=== PATIENT | female | born 1950 | race Caucasian/White ===

== ENCOUNTER → 2016-06-01 | Outpatient (CLI) | payer OTHER ==
[~2016-06-01] MED LIST: ALEVE220 MG PO; CRESTOR10 MG PO; PRILOSEC20 MG PO; TUMS PO; VITAMIN B12-FO1 EAC1 PO; VITAMIN D1000 UNI1 PO
== END ==
LOC: CAT 13:12
DX: K57.90 Diverticulosis of intestine, part unspecified, without perforation or abscess without bleeding (principal); K76.0 Fatty (change of) liver, not elsewhere classified; R10.2 Pelvic and perineal pain; R10.9 Unspecified abdominal pain

== ENCOUNTER → 2016-10-03 | Outpatient (CLI) | payer OTHER ==
[2016-10-03 08:38] LABS: URINE BILIRUBIN NEGATIVE (Negative); URINE BLOOD NEGATIVE (Negative); URINE COLOR YELLOW; URINE GLUCOSE-RANDOM* NEGATIVE (Negative); URINE KETONES NEGATIVE (Negative); URINE NITRITE NEGATIVE (Negative); URINE PROTEIN (DIPSTICK) TRACE (Negative); URINE SPECIFIC GRAVITY 1.025 (1.003-1.035)
[2016-10-03 08:39] LABS: ABSOLUTE NEUTROPHILS 2.7 thou/uL (1.4-8.2); BASOPHILS 1.1 % (0.0-2.0); EOSINOPHILS 5.8 % (0.0-3.0); HEMATOCRIT 46.4 % (37.0-47.0); HEMOGLOBIN 15.7 gm/dL (12.0-15.0); LYMPHOCYTES 36.8 % (24.0-44.0); MCH 30.5 pg (26.0-34.0); MCHC 33.9 g/dL (28.0-37.0); MCV 89.8 fL (80.0-100.0); MONOCYTES 11.5 % (1.0-8.0); PLATELET COUNT 312 thou/uL (150-400); POLYS 44.8 % (36.0-66.0); RBC 5.17 mil/uL (4.20-5.00); RDW 14.7 % (10.5-14.5); WBC 6.1 thou/uL (4.0-11.0)
[2016-10-03 08:40] LABS: MANUAL DIFF NO
[2016-10-03 08:55] LABS: ALBUMIN 3.9 g/dL (3.4-5.0); ALKALINE PHOSPHATASE 88 U/L (46-116); ANION GAP 6 mmol/L (7-16); BUN 16 mg/dL (7-18); CALCIUM 9.2 mg/dL (8.5-10.1); CHLORIDE 108 mmol/L (98-107); CHOLESTEROL 175 mg/dL (<200); CO2 28 mmol/L (21-32); CREATININE 0.9 mg/dL (0.6-1.0); GLUCOSE 110 mg/dL (74-106); HDL CHOLESTEROL 48 mg/dL (>40); LDL CHOLESTEROL 106 mg/dL (<100); POTASSIUM 4.1 mmol/L (3.5-5.1); SGOT 19 U/L (15-37); SGPT 24 U/L (30-65); SODIUM 142 mmol/L (136-145); TC:HDL 3.6 Ratio (Not establshd); TOTAL BILIRUBIN 1.4 mg/dL (<0.1-1.0); TOTAL PROTEIN 7.2 g/dL (6.4-8.2); TRIGLYCERIDE 105 mg/dL (<150); VLDL 21 mg/dL (<40)
== END ==
LOC: LABMALL 08:02
PROVIDERS: Internal Medicine
DX: Z00.00 Encounter for general adult medical examination without abnormal findings (principal)

== ENCOUNTER → 2016-10-22 | Outpatient (CLI) | payer OTHER | LOC: NUC 10:20 | DX: E28.39 Other primary ovarian failure (principal); Z78.0 Asymptomatic menopausal state ==

== ENCOUNTER → 2017-04-26 | Outpatient (CLI) | payer OTHER ==
[~2017-04-26] VITALS: Ht 160 cm; Wt 112.0 kg
[~2017-04-26] MED LIST changes: +PRILOSEC 20 MG20 MG PO; +VITAMINC500 PO; +ZYRTEC10 M5 PO
--- NOTE | ~2017-04-26 | S ---
[facility] [address] [place] [address] SURGICAL PATH RPT PROCEDURE Name: KIMBERLY HUTCHISON Room #: REG MIGUEL Hurst#: [id number] Admission: 04/26/17 Date of : 52 Discharge: Report #: [id number] Path Case #: [id number] PATHOLOGY REPORT DRAFT COLLECTION DATE: 04/26/2017 RECEIVED DATE: 04/26/2017 SPECIMEN(S) RECEIVED: Anthony of distal esophagus
--- NOTE | ~2017-04-26 | P ---
[facility] [place] [address] PROCEDURE REPORT Name: KIMBERLY HUTCHISON Room #: REG [facility] Aris#: [id number] Admission: 04/26/17 Attend Phys: Gallito Rojas Discharge: Date of : 52 Report #: [id number] THIS REPORT FOR: //name// CC: Aminata Luke DATE OF SERVICE: 04/26/2017 PROCEDURE PERFORMED: Upper endoscopy with biopsies. HISTORY OF PRESENT ILLNESS: The patient is a 66-year-old female with a history of Hdz's esophagus. Last upper endoscopy with biopsies was performed 3 years ago. She is here for routine followup. She takes Prilosec on a daily basis. She denies any symptoms. PROCEDURE: The risks and benefits of the procedure were explained to the patient, those risks including, but not limited to bleeding or perforation. She understood these risks and gave informed consent. Sedation was given using propofol per anesthesia. Next, using a standard [employer] upper endoscope, the scope was placed in the patient's mouth and advanced under direct vision through the esophagus, stomach and into the second portion of the duodenum. The upper and mid esophagus was normal in appearance. At the GE junction, a tiny possible tongue of Hdz's was noted. Biopsies were obtained. No evidence of esophagitis. Upon entering the stomach, a small hiatal hernia was noted. Overall, the gastric mucosa was normal. The pylorus was normal and patent. The duodenal bulb, first and second portion were all normal. The scope was then withdrawn and the procedure terminated. The patient tolerated the procedure well. IMPRESSION: 1. Possible short segment Hdz's. 2. Small hiatal hernia. 3. Otherwise, normal upper endoscopy. RECOMMENDATIONS: 1. Await biopsy results. 2. Continue PPI therapy. Thank you for allowing me to participate in her care. By: [id number] Gallito Luke MD /nt
== END | disposition home or self-care (01) ==
LOC: GI 07:39
DX: K44.9 Diaphragmatic hernia without obstruction or gangrene (principal)

== ENCOUNTER → 2018-03-28 | Outpatient (CLI) | payer OTHER ==
[~2018-03-28] VITALS: Ht 160 cm; Wt 112.5 kg
[~2018-03-28] MED LIST changes: +TYLENOL EXTRA500 MG PO
--- NOTE | ~2018-03-28 | P ---
[facility] [place] [address] PROCEDURE REPORT Name: KIMBERLY HUTCHISON Room #: REG [facility] Aris#: [id number] Admission: 03/28/18 Attend Phys: Gallito Rojas Discharge: Date of : 52 Report #: [id number] THIS REPORT FOR: //name// CC: Aminata Luke DATE OF SERVICE: 03/28/2018 PROCEDURE PERFORMED: Colonoscopy. HISTORY OF PRESENT ILLNESS: The patient is a 67-year-old female with a history of polyps 5 years ago who is here for routine followup. She denies any symptoms. No family history of colon cancer. DESCRIPTION OF PROCEDURE: The risks and benefits of the procedure were explained to the patient, those risks including but not limited to bleeding, perforation, the risk of sedation. She understood these risks and gave informed consent. Sedation was given using propofol per anesthesia. Next, a digital rectal exam was initially performed, which was normal. Next, using a standard Olympus colonoscope, the scope was placed in the patient's anus and advanced under direct vision to the cecum. The overall prep was excellent. The cecum and ileocecal valve were normal in appearance. The ascending and transverse colon were normal. Multiple diverticula were noted throughout the descending and sigmoid colon, no evidence of inflammation, otherwise normal. The rectal mucosa was normal. On retroflexion, no abnormalities were noted. The scope was then withdrawn and the procedure terminated. The patient tolerated the procedure well. IMPRESSION: 1. Left-sided diverticulosis. 2. Otherwise, normal colonoscopy. RECOMMENDATIONS: 1. High fiber diet. 2. Repeat colonoscopy in 10 years. Thank you for allowing me to participate in her care. <ELECTRONICALLY SIGNED> By: Gallito Luke MD 03/31/18 [id number] Gallito Luke MD /nt
== END | disposition home or self-care (01) ==
LOC: GI 08:01
DX: Z12.11 Encounter for screening for malignant neoplasm of colon (principal); K57.30 Diverticulosis of large intestine without perforation or abscess without bleeding; Z86.010 Personal history of colon polyps; E78.5 Hyperlipidemia, unspecified; K21.9 Gastro-esophageal reflux disease without esophagitis; G47.30 Sleep apnea, unspecified; Z98.890 Other specified postprocedural states; Z88.1 Allergy status to other antibiotic agents; Z88.2 Allergy status to sulfonamides; Z88.8 Allergy status to other drugs, medicaments and biological substances; Z91.09 Other allergy status, other than to drugs and biological substances; Z79.899 Other long term (current) drug therapy; Z90.89 Acquired absence of other organs; Z98.51 Tubal ligation status; Z90.10 Acquired absence of unspecified breast and nipple
CPT/HCPCS: 62110; 62900